=== PATIENT | male | born 1950 | race Caucasian/White ===

== ENCOUNTER 2018-06-23 13:43 | Emergency (ER) | payer MEDICARE, OTHER ==
[2018-06-23 13:57] VITALS: BP 134/78
--- NOTE | 2018-06-23 14:20 | ED Physician Documentation ---
History of Present Illness - Stated complaint Stated Complaint: LT THIGH INJ - Chief complaint Chief Complaint: Ext Problem - Additonal information Additional information: hx from pt 67 male on coumadin making the bed and hit thigh on bedpost has a bruise thigh very swollen and painful diff to walk meds are allopurinol, cochicine, amriodarone, coumadin. indapamide, lexapro, statin, wellbutrin, zertia, vitamins Review of Systems Musculoskeletal: reports: Extremity pain, Extremity swelling Endocrine: reports: Easy bruising / bleeding PD PAST MEDICAL HISTORY - Present Medications Home Medications: Ambulatory Orders Medication Instructions Recorded Confirmed HYDROcod/ACETAM 5/325 [[place] 5/325] 1 ea PO Q6H PRN #10 tablet 06/23/18 - Allergies Allergies/Adverse Reactions: Allergies Allergy/AdvReac Type Severity Reaction Status Date / Time Cpnwfvi-Ysz-Zlt Reductase AdvReac Unknown Verified 06/23/18 13:56 Inhibitor PD ED PE NORMAL - Vitals Vital signs reviewed: Yes - Cardiac Cardiac: RRR - Respiratory Respiratory: No respiratory distress, Clear bilaterally - Extremities Extremities: Other (L thigh anterior bruised and very swollen, firm to touch but not hard, pain with range of motion but not at rest, MSV intact) Results - Vitals Vitals: Vital Signs - 24 hr 06/23/18 13:54 Temperature 36.4 C L Heart Rate 85 Respiratory 16 Rate Blood Pressure 134/78 H O2 Saturation 96 Oxygen O2 Source Room air - Labs Labs: Laboratory Tests 06/23/18 06/23/18 14:26 14:26 WBC 11.4 H RBC 4.17 L Hgb 12.4 L Hct 35.7 L MCV 85.7 MCH 29.8 MCHC 34.7 RDW 14.7 Plt Count 289 MPV 7.2 L Neut # (Auto) 9.0 H Lymph # (Auto) 0.9 L [place] # (Auto) 1.4 H Eos # (Auto) 0.1 Baso # (Auto) 0.0 Absolute Nucleated RBC 0.00 Nucleated RBC % 0.0 PT 43.8 H INR 4.1 H - Rads (name of study) CT LE Radiology: See rad report (11 X 6 X 5 cm hematoma to central / lateral vasttus intermedius mm) PD MEDICAL DECISION MAKING - Sepsis Event Vital Signs: Vital Signs - 24 hr 06/23/18 13:54 Temperature 36.4 C L Heart Rate 85 Respiratory 16 Rate Blood Pressure 134/78 H O2 Saturation 96 Oxygen O2 Source Room air Departure - Departure Disposition: 01 Home, Self Care Clinical Impression: Hematoma of muscle Condition: Good Instructions: ED Hematoma Prescriptions: HYDROcod/ACETAM 5/325 [[place] 5/325] 1 ea PO Q6H PRN #10 tablet PRN Reason: Severe Pain Comments: Your blood count is fine - you have not lost too much blood into the muscle Your INR is high today 4.1 - please hold your coumadin today and ask your pill maker to recheck the level at your appointment tomorrow There is a hematoma deep in the quadricep muscle - is is about 5 X 6 X 11 cm - but it is not accessible to be drained. It should gradually reasborb on its own. The bone is fine - no fracture The hematoma and swelling have not caused compartment syndrome (when the muscle swells up so much is cannot fit in its sheath/covering and thus compromises its own blood supply) I think it is safe for you to go home I recommend you hold the coumadin today and get your INR and blood count rechecked tomorrow. Apply ice for 20 minutes at time every 1-3 hr today and tomorrow to decrease the swelling and hopefully slow some of the bleeding Wear the NATASHA wrap as well I have prescribed medication to ease the pain COnsider using a walker to help reduce the pain of weight bearing until this has healed If the pain becomes very severe and the leg feels hard to the touch like a piece of wood r stone or if your foot cemoes numb or pale, those could be signs of compartment syndrome developing and you should come back to the ER Discharge Date/Time: 06/23/18 16:30
[2018-06-23 14:30] LABS: BASOPHILS % (AUTO) 0.3 %; EOSINOPHILS # (AUTO) 0.1 10^3/uL (0.0-0.7); EOSINOPHILS % (AUTO) 0.8 %; HGB - HEMOGLOBIN 12.4 g/dL (14.0-18.0); LYMPHOCYTES # (AUTO) 0.9 10^3/uL (1.5-3.5); LYMPHOCYTES % (AUTO) 7.6 %; MEAN CORPUSCULAR HEMOGLOBIN 29.8 pg (27.0-31.0); MEAN CORPUSCULAR HGB CONC 34.7 g/dL (32.0-36.0); MEAN CORPUSCULAR VOLUME 85.7 fL (80.0-94.0); MEAN PLATELET VOLUME 7.2 fL (7.4-11.4); MONOCYTES # (AUTO) 1.4 10^3/uL (0.0-1.0); NEUTROPHILS % (AUTO) 79.3 %; PLT - PLATELET COUNT 289 10^3/uL (130-450); RED BLOOD COUNT 4.17 10^6/uL (4.70-6.10); RED CELL DISTRIBUTION WIDTH 14.7 % (12.0-15.0); WHITE BLOOD COUNT 11.4 x10^3/uL (4.8-10.8)
[2018-06-23 14:36] LABS: INR 4.1 (0.8-1.2); PT - PROTHROMBIN TIME 43.8 secs (9.9-12.6)
--- NOTE | 2018-06-23 15:27 | CT Report ---
Procedure Date: 06/23/2018 Accession Number: [id number] / [id number] Procedure: CT - Lower Extremity Left W/O CPT Code: FULL RESULT: EXAM: LEFT FEMUR CT WITHOUT CONTRAST EXAM DATE: 06/23/2018 03:06 PM. CLINICAL HISTORY: Left thigh contusion and swelling. Concern for hematoma. On Coumadin therapy. COMPARISON: None. TECHNIQUE: Thin-section axial images were acquired of the left femur from the greater trochanter to the distal femoral metadiaphysis without contrast. Post-processing: Coronal and sagittal reformats. Other: None. In accordance with CT protocol optimization, one or more of the following dose reduction techniques were utilized for this exam: automated exposure control, adjustment of mA and/or KV based on patient size, or use of iterative reconstructive technique. FINDINGS: Bones: No fracture or bone lesion. Joints: The hip and knee joints are not in the [id number]-or-ixws. Musculature: Evaluation of the musculature is technically limited due to lack of intravenous contrast. However, there is an approximately 11 cm superior inferior by 6 cm AP by 5 cm medial to lateral ill-defined area of heterogeneous slightly hyperdense and slightly hypodense tissue within the central to lateral aspects of the vastus intermedius muscle. Other: Mild subcutaneous edema at the anterolateral aspect of the distal thigh. IMPRESSION: 1. Technically limited exam due to lack of intravenous contrast. 2. An approximately 11 x 6 x 5 cm ill-defined area of heterogeneous slightly hyperdense and slightly hypodense tissue within the central to lateral aspects of the vastus intermedius muscle. Differential would include hematoma, abscess, myositis, neoplasm. If the patient's symptoms persists or worsen, then further evaluation with a follow-up MRI without and with intravenous contrast is suggested. RADIA
== END 2018-06-23 16:30 | disposition home or self-care (01) ==
LOC: ED 13:43
DX: S70.12XA Contusion of left thigh, initial encounter (principal); W22.03XA Walked into furniture, initial encounter; Y93.E9 Activity, other interior property and clothing maintenance; R79.1 Abnormal coagulation profile
CPT/HCPCS: 36415; 85025; 85610; 99283

== ENCOUNTER 2018-07-08 14:47 | Outpatient (CLI) | payer MEDICARE, OTHER ==
[2018-07-08 17:57] LABS: CALCIUM 8.8 mg/dL (8.5-10.3); CREATININE 0.9 mg/dL (0.6-1.2)
== END 2018-07-08 14:48 | disposition home or self-care (01) ==
LOC: LAB.F 14:47
PROVIDERS: ATTEND Internal Medicine Cardiovascular Disease
DX: Z51.81 Encounter for therapeutic drug level monitoring (principal)
CPT/HCPCS: 36415; 80048

== ENCOUNTER 2019-12-04 08:15 | Outpatient (CLI) | payer MEDICARE, OTHER ==
[2019-12-04 17:30] LABS: BILIRUBIN,URINE NEGATIVE (NEGATIVE); GLUCOSE, URINE (UA) NEGATIVE (NEGATIVE); KETONES,URINE (UA) NEGATIVE (NEGATIVE); LEUKOCYTE ESTERASE, URINE NEGATIVE (NEGATIVE); NITRITE,URINE NEGATIVE (NEGATIVE); OCCULT BLOOD,URINE NEGATIVE (NEGATIVE); PROTEIN,URINE NEGATIVE (NEGATIVE); UROBILINOGEN,URINE 0.2 (NORMAL) E.U./dL (NORMAL)
[2019-12-04 17:35] LABS: CLARITY,URINE CLEAR (CLEAR)
[2019-12-04 17:49] LABS: BACTERIA,URINE None Seen /HPF (None Seen); CRYSTALS,URINE 6-10 Calcium Oxalate /LPF; RBC,URINE 0-5 /HPF (0-5); SQUAMOUS EPITHELIAL CELL,UR NONE SEEN (<= Few)
== END 2019-12-04 23:59 | disposition home or self-care (01) ==
LOC: LAB.R 08:15
DX: R30.0 Dysuria (principal); R10.32 Left lower quadrant pain
CPT/HCPCS: 81001; 87086

== ENCOUNTER 2021-02-21 10:11 | Outpatient (CLI) | payer MEDICARE, OTHER ==
[2021-02-21 16:21] LABS: CALCIUM 9.4 mg/dL (8.5-10.3); CREATININE 1.1 mg/dL (0.6-1.2); POTASSIUM 3.5 mmol/L (3.5-5.0)
== END 2021-02-21 10:12 | disposition home or self-care (01) ==
LOC: LAB.S 10:11
PROVIDERS: ATTEND Internal Medicine Cardiovascular Disease
DX: I10 Essential (primary) hypertension (principal)
CPT/HCPCS: 36415; 80048

== ENCOUNTER 2021-04-25 13:13 | Outpatient (CLI) | payer MEDICARE, OTHER ==
[2021-04-25 20:09] LABS: CALCIUM 9.2 mg/dL (8.5-10.3); CREATININE 0.9 mg/dL (0.6-1.2); POTASSIUM 3.8 mmol/L (3.5-5.0)
== END 2021-04-25 13:14 | disposition home or self-care (01) ==
LOC: LAB.S 13:13
PROVIDERS: ATTEND Internal Medicine Cardiovascular Disease
DX: I10 Essential (primary) hypertension (principal)
CPT/HCPCS: 36415; 80048

== ENCOUNTER 2021-05-24 08:46 | Outpatient (CLI) | payer MEDICARE, OTHER ==
[2021-05-24 17:09] LABS: HCT - HEMATOCRIT 41.4 % (42.0-52.0); HGB - HEMOGLOBIN 13.4 g/dL (14.0-18.0); MEAN CORPUSCULAR HEMOGLOBIN 30.2 pg (27.0-31.0); MEAN CORPUSCULAR HGB CONC 32.4 g/dL (32.0-36.0); MEAN CORPUSCULAR VOLUME 93.5 fL (80.0-94.0); MEAN PLATELET VOLUME 10.6 fL (7.4-11.4); RED BLOOD COUNT 4.43 10^6/uL (4.70-6.10); RED CELL DISTRIBUTION WIDTH 14.6 % (12.0-15.0)
[2021-05-24 17:27] LABS: ALBUMIN 3.8 g/dL (3.2-5.5); ALBUMIN/GLOBULIN RATIO 1.5 (1.0-2.2); ALKALINE PHOSPHATASE 50 IU/L (42-121); ALT ALANINE AMINOTRANSFERASE 27 IU/L (10-60); AST ASPARTATE AMINOTRANSFERASE 23 IU/L (10-42); BILIRUBIN,TOTAL 0.6 mg/dL (0.2-1.0); BUN - BLOOD UREA NITROGEN 11 mg/dL (6-20); CALCIUM 8.9 mg/dL (8.5-10.3); CARBON DIOXIDE - CO2 28 mmol/L (21-32); CHLORIDE 105 mmol/L (101-111); CHOL/HDL RATIO 3.4 (<5.0); CHOLESTEROL 121 mg/dL; GFR - MDRD 74 (>89); GLUCOSE 106 mg/dL (70-100); HDL CHOLESTEROL 36 mg/dL; LDL CHOLESTEROL,CALCULATED 70 mg/dL; LDL/HDL RATIO 1.9 (<3.6); POTASSIUM 3.8 mmol/L (3.5-5.0); SODIUM 137 mmol/L (135-145); TOTAL PROTEIN 6.4 g/dL (6.7-8.2); TRIGLYCERIDES 73 mg/dL; URIC ACID 5.4 mg/dL (2.6-7.2); VLDL CHOLESTEROL 15 mg/dL
== END 2021-05-24 08:47 | disposition home or self-care (01) ==
LOC: LAB.S 08:46
PROVIDERS: ATTEND Family Medicine
DX: E78.00 Pure hypercholesterolemia, unspecified (principal); Z87.39 Personal history of other diseases of the musculoskeletal system and connective tissue
CPT/HCPCS: 36415; 80053; 80061; 83721; 84550; 85027

== ENCOUNTER 2021-06-13 22:13 | Outpatient (CLI) | payer MEDICARE, OTHER | END 2021-06-13 22:14 | disposition short-term general hospital (02) | LOC: EMS 22:13 | DX: R07.81 Pleurodynia (principal) | CPT/HCPCS: A0425; A0429 ==

== ENCOUNTER 2021-07-07 10:25 | Outpatient (CLI) | payer MEDICARE, OTHER | END 2021-07-07 10:26 | disposition short-term general hospital (02) | LOC: EMS 10:25 | DX: R06.02 Shortness of breath (principal) | CPT/HCPCS: A0425; A0427 ==

== ENCOUNTER 2021-08-19 07:21 | Outpatient (CLI) | payer MEDICARE, OTHER ==
[2021-08-19 07:58] LABS: HCT - HEMATOCRIT 40.2 % (42.0-52.0); HGB - HEMOGLOBIN 13.1 g/dL (14.0-18.0); MEAN CORPUSCULAR HEMOGLOBIN 29.6 pg (27.0-31.0); MEAN CORPUSCULAR HGB CONC 32.6 g/dL (32.0-36.0); MEAN CORPUSCULAR VOLUME 90.7 fL (80.0-94.0); MEAN PLATELET VOLUME 9.7 fL (7.4-11.4); RED BLOOD COUNT 4.43 10^6/uL (4.70-6.10); RED CELL DISTRIBUTION WIDTH 14.7 % (12.0-15.0); WHITE BLOOD COUNT 6.2 x10^3/uL (4.8-10.8)
[2021-08-19 08:17] LABS: ALBUMIN 3.8 g/dL (3.2-5.5); ALBUMIN/GLOBULIN RATIO 1.4 (1.0-2.2); ALKALINE PHOSPHATASE 57 IU/L (42-121); ALT ALANINE AMINOTRANSFERASE 27 IU/L (10-60); AST ASPARTATE AMINOTRANSFERASE 22 IU/L (10-42); BILIRUBIN,TOTAL 0.7 mg/dL (0.2-1.0); BUN - BLOOD UREA NITROGEN 13 mg/dL (6-20); CALCIUM 9.5 mg/dL (8.5-10.3); CARBON DIOXIDE - CO2 29 mmol/L (21-32); CHLORIDE 105 mmol/L (101-111); CHOL/HDL RATIO 3.7 (<5.0); CHOLESTEROL 139 mg/dL; GFR - MDRD 74 (>89); GLUCOSE 97 mg/dL (70-100); HDL CHOLESTEROL 38 mg/dL; LDL CHOLESTEROL,CALCULATED 82 mg/dL; LDL/HDL RATIO 2.2 (<3.6); SODIUM 143 mmol/L (135-145); TOTAL PROTEIN 6.6 g/dL (6.7-8.2); TRIGLYCERIDES 95 mg/dL; VLDL CHOLESTEROL 19 mg/dL
== END 2021-08-19 07:22 | disposition home or self-care (01) ==
LOC: LAB 07:21
PROVIDERS: ATTEND Internal Medicine Cardiovascular Disease
DX: E78.5 Hyperlipidemia, unspecified (principal); I48.91 Unspecified atrial fibrillation
CPT/HCPCS: 36415; 80053; 80061; 83721; 85027

== ENCOUNTER 2022-03-31 14:01 | Inpatient (IN) | payer MEDICARE, OTHER ==
[2022-03-31] MEDS ORDERED: ALBUTEROL 1 PUFF INH STA (14:36)
--- NOTE | 2022-03-31 14:40 | ED Physician Documentation ---
History of Present Illness - Stated complaint Stated Complaint: C+ FEVER/CHILLS - Chief complaint Chief Complaint: Resp - Additonal information Additional information: 71-year-old male presents emergency department for evaluation of dyspnea in the setting of COVID-19 infection. He began having generalized myalgias fevers cough and chills on 28 March. It was at that time that he tested positive for COVID. He comes to the ER today with worsening dyspnea. He is doubly vaccinated and boosted with Pfizer. His last vaccine he believes was in January. No nausea or vomiting. He is denying any chest pain. Past medical history is most significant for hypertension, hyperlipidemia and atrial fibrillation. Anticoagulated on Xarelto. He also has a history of BPH for which he takes Flomax. Multiple antidepressants. No history of tobacco use or pulmonary disorder. Review of Systems Constitutional: reports: Fever, Chills, Myalgias, Fatigue Eyes: reports: Reviewed and negative Ears: reports: Reviewed and negative Nose: reports: Congestion Throat: reports: Reviewed and negative Cardiac: reports: Reviewed and negative Respiratory: reports: Dyspnea, Cough GI: reports: Reviewed and negative : reports: Reviewed and negative Skin: reports: Reviewed and negative Musculoskeletal: reports: Reviewed and negative PD PAST MEDICAL HISTORY - Past Surgical History Past Surgical History: No - Present Medications Home Medications: Ambulatory Orders Medication Instructions Recorded Confirmed HYDROcod/ACETAM 5/325 [[place] 5/325] 1 ea PO Q6H PRN #10 tablet 06/23/18 - Allergies Allergies/Adverse Reactions: Allergies Allergy/AdvReac Type Severity Reaction Status Date / Time Hlalkwe-BJQ-BzH Reductase AdvReac Unknown Verified 06/23/18 13:56 Inhibitor [Cwwitvl-Zsp-Ttb Reductase Inhibitor] - Social History Does the pt smoke?: No Smoking Status: Never smoker Does the pt drink ETOH?: No Does the pt have substance abuse?: No - Immunizations Immunizations are current?: Yes - POLST Patient has POLST: No PD ED PE EXPANDED - General General: Alert, No acute distress, Other (Obese) - Neck Neck: Supple w/out meningeal sx. No: Adenopathy - Cardiac Cardiac: Irregularly irregular, Murmur Present, Radial strong equal, Pedal strong equal, Cap refill < 2 sec - Respiratory Respiratory: Clear to ausultation surekha. No: Distress, Labored (No tachypnea or rales.) - Abdomen Abdomen: Normal Bowel sounds. No: Tender to palpation - Back Back: Normal exam - Derm Derm: Normal color, Warm and dry - Extremities Extremities: Normal. No: Deformity - Neuro Neuro: Alert and Oriented X 3, CNII-XII intact - GCS Eye Opening: Spontaneous Motor: Obeys Commands Verbal: Oriented Total: 15 Results - Vitals Vitals: Vital Signs - 24 hr 03/31/22 03/31/22 03/31/22 14:19 15:30 16:21 Temperature 38.1 C H Heart Rate 94 78 Respiratory 19 20 Rate Blood Pressure 129/77 O2 Saturation 93 87 L 03/31/22 03/31/22 03/31/22 16:29 16:33 16:36 Temperature 39.6 C H Heart Rate 90 93 Respiratory 18 Rate Blood Pressure 128/66 O2 Saturation 87 L 94 Oxygen O2 Source Nasal cannula - Labs Labs: Laboratory Tests 03/31/22 03/31/22 14:48 14:48 WBC 7.8 RBC 4.63 L Hgb 14.5 Hct 42.2 MCV 91.1 MCH 31.3 H MCHC 34.4 RDW 14.2 Plt Count 157 MPV 10.1 Neut # (Auto) 6.2 Lymph # (Auto) 0.5 L [place] # (Auto) 1.1 H Eos # (Auto) 0.0 Baso # (Auto) 0.0 Absolute Nucleated RBC 0.00 Nucleated RBC % 0.0 Sodium 139 Potassium 3.7 Chloride 101 Carbon Dioxide 26 Anion Gap 12.0 BUN 13 Creatinine 1.0 Estimated GFR (MDRD) 74 L Glucose 106 H Calcium 9.2 Total Bilirubin 0.7 AST 43 H ALT 41 Alkaline Phosphatase 48 Total Protein 7.0 Albumin 4.1 Globulin 2.9 Albumin/Globulin Ratio 1.4 Lipase 33 - Rads (name of study) cxr Radiology: Final report received (Slight appearance of increased interstitial markings as above which could be related to edema or potentially pneumonia.) PD MEDICAL DECISION MAKING - ED course Complexity details: reviewed results, re-evaluated patient, considered differential, d/w patient, d/w family ED course: 71-year-old male who has a history of hypertension hyperlipidemia and atrial fibrillation for which he takes Coumadin presents emergency department with dyspnea. He tested positive for COVID-19 at home on the . Initially when he presented he did have some scattered rhonchi and room air saturations were about 93%. However during the duration of his ED stay his saturations have slowly declined now to 87%. Chest x-ray is perhaps suggestive of an early pneumonia but not overwhelming. In addition to this over the course of his ED stay he has been calm more progressively febrile with a T-max of 103.1. Blood cultures are pending. Given the new hypoxia in the setting of COVID-19 patient was presented for admission to Dr. Montez who graciously agrees to admit. I did discuss the plan with the patient as well as his . Departure - Departure Disposition: 66 [facility] DC/Xfer Clinical Impression: Hypoxia, COVID-19 virus infection Fever Qualifiers: Fever type: due to other condition Qualified Code(s): R50.81 - Fever presenting with conditions classified elsewhere
[2022-03-31 14:54] LABS: BASOPHILS % (AUTO) 0.3 %; EOSINOPHILS % (AUTO) 0.1 %; HCT - HEMATOCRIT 42.2 % (42.0-52.0); HGB - HEMOGLOBIN 14.5 g/dL (14.0-18.0); LYMPHOCYTES # (AUTO) 0.5 10^3/uL (1.5-3.5); LYMPHOCYTES % (AUTO) 6.1 %; MEAN CORPUSCULAR HEMOGLOBIN 31.3 pg (27.0-31.0); MEAN CORPUSCULAR HGB CONC 34.4 g/dL (32.0-36.0); MEAN CORPUSCULAR VOLUME 91.1 fL (80.0-94.0); MEAN PLATELET VOLUME 10.1 fL (7.4-11.4); MONOCYTES # (AUTO) 1.1 10^3/uL (0.0-1.0); MONOCYTES % (AUTO) 13.7 %; NEUTROPHILS # (AUTO) 6.2 10^3/uL (1.5-6.6); NEUTROPHILS % (AUTO) 79.4 %; PLT - PLATELET COUNT 157 10^3/uL (130-450); RED BLOOD COUNT 4.63 10^6/uL (4.70-6.10); RED CELL DISTRIBUTION WIDTH 14.2 % (12.0-15.0); WHITE BLOOD COUNT 7.8 x10^3/uL (4.8-10.8)
[2022-03-31 15:07] LABS: ALBUMIN 4.1 g/dL (3.2-5.5); ALBUMIN/GLOBULIN RATIO 1.4 (1.0-2.2); BILIRUBIN,TOTAL 0.7 mg/dL (0.2-1.0); CALCIUM 9.2 mg/dL (8.5-10.3); POTASSIUM 3.7 mmol/L (3.5-5.0)
--- NOTE | 2022-03-31 15:33 | XRAY Report ---
PROCEDURE: Chest 1 View X-Ray INDICATIONS: COUGH/COVID SX TECHNIQUE: One view of the chest was acquired. COMPARISON: None FINDINGS: Surgical changes and devices: None. Lungs and pleura: There is a slight appearance of increased interstitial markings most notably on the left. Mediastinum: Mediastinal contours appear normal. Heart size is mildly prominent. Bones and chest wall: No suspicious bony lesions. Overlying soft tissues appear unremarkable. IMPRESSION: Slight appearance of increased interstitial markings as above which could be related to edema or pote ntially pneumonia. Reviewed by: Jeny Hammer MD on 03/31/2022 3:32 PM PDT Approved by: Jeny Hammer MD on 03/31/2022 3:32 PM PDT Station ID: [id number]
[2022-03-31] MEDS ORDERED: ONDANSETRON 4 MG/2 ML VIAL IVP PRN (16:45)
[2022-03-31] MEDS ORDERED: ONDANSETRON ODT 4 MG TABLET TL PRN (16:45)
[2022-03-31] MEDS ORDERED: ACETAMINOPHEN 325 MG TABLET PO PRN (16:45)
[2022-03-31] MEDS ORDERED: SODIUM CHLORIDE FLUSH 0.9% 10 ML SYRINGE IVP PRN (16:45)
[2022-03-31] MEDS ORDERED: CHERRY SYRUP 10 ML UDC PO ONE (16:46)
[2022-03-31] MEDS ORDERED: cefTRIAXone 1 GM in SODIUM CHLORIDE 0.9% MINIBAG 100 ML IV STA (17:21)
[2022-03-31] MEDS ORDERED: AZITHROMYCIN INJ 500 MG in SODIUM CHLORIDE 0.9% 250 ML IV STA (17:21)
--- NOTE | 2022-03-31 17:23 | HISTORY & PHYSICAL EXAMINATION ---
Chief Complaint - Chief Complaint Chief Complaint: Shortness of breath History of Present Illness - Admitted From Admitted From:: Home - History Obtained From Records Reviewed: [facility] History obtained from: Patient, ER Provider, EMR - History of Present Illness HPI Comment/Other: This is a 71-year-old male with a past medical history significant for atrial fibrillation on coumadin, depression, PVD, history of pulmonary embolism, KENDRA on CPAP, BPH who presents today complaining of worsening shortness of breath. He states he began feeling ill on Sunday with a sore throat, nasal congestion, fever, chills and myalgias. He did a COVID test on Sunday which came back positive. Since then, he has had progressive shortness of breath and a pro ductive cough. He is vaccinated with [employer] and has received a booster dose. His biggest complaint at this time is the cough and chest congestion which makes him feel short of breath. He denies any chest pain, dysuria, urgency, hematuria. Reports no nausea, vomiting, abdominal pain. He does take Coumadin for history of pulmonary embolism. In the emergency department, he was noted to be hypoxic and required 3 L of oxygen via nasal cannula. Chest x-ray was consistent with pneumonia. Given t his, medicine was consulted for admission. We did discuss goals of care and he would like to be a full code. History - Past Medical History Cardiovascular: reports: Hypertension, Peripheral Vascular Disease, Pulmonary embolism, Atrial fibrillation Respiratory: reports: Sleep apnea, CPAP use : reports: Benign prostate hypertrophy Psych: reports: Depression MRSA Hx?: No - Past Surgical History Cardiovascular: reports: Other (Iliac stenting.) - Family & Social History Family History Comment/Other: He reports mother had a history of breast cancer and colon cancer that metastasized to the liver. Living arrangement: At home Living Situation: With spouse/s.o. Social History Notes: He lives at home with his . He is a non-smoker. He drinks about 3 alcoholic beverages a week. - POLST Patient has POLST: No Meds/Allgy - Home Medications Home Medications: Ambulatory Orders Medication Instructions Recorded Confirmed Bupropion HCl [Wellbutrin Xl] 300 mg PO DAILY 03/31/22 Colchicine [Colcrys] 1.2 mg PO ONCE PRN 03/31/22 Ezetimibe [Zetia] 10 mg PO QD 03/31/22 Metoprolol Succinate [Toprol Xl] 25 mg PO DAILY 03/31/22 Pitavastatin Calcium [Livalo] 4 mg PO DAILY 03/31/22 Potassium Chloride [K-Dur] 20 meq PO DAILY 03/31/22 Tamsulosin [Flomax] 0.4 mg PO DAILY 03/31/22 Warfarin [Coumadin] 5 mg PO DAILY 03/31/22 allopurinoL [Allopurinol] 300 mg PO DAILY 03/31/22 - Allergies Allergies/Adverse Reactions: Allergies Allergy/AdvReac Type Severity Reaction Status Date / Time Ljxglxr-BBN-NaS Reductase AdvReac Unknown Verified 06/23/18 13:56 Inhibitor [Wxqbxpb-Zrm-Vnj Reductase Inhibitor] Review of Systems - Constitutional Constitutional: reports: Fever, Malaise - Ears, Nose & Throat Ears, Nose & Throat: reports: Nasal discharge, Nasal congestion, Sore throat - Cardiovascular Cariovascular: reports: Exertional dyspnea, Decr. exercise tolerance. denies: Chest pain, Edema - Respiratory Respiratory: reports: Cough, Sputum production, SOB at rest, SOB with exertion - Gastrointestinal Gastrointestinal: denies: Abdominal pain, Nausea, Vomiting - Genitourinary Genitourinary: denies: Dysuria, Frequency, Urgency, Hematuria - Musculoskeletal Musculoskeletal: reports: Muscle aches - Integumentary Integumentary: denies: Rash - Neurological Neurological: denies: General weakness, Focal weakness - Hematologic/Lymphatic Hematologic/Lymphatic: reports: Blood clots. denies: Anemia, Bleeding tendencies - All Other Systems All Other Systems: reports: Reviewed and negative Prior Level of Functionality: He is independent with his ADLs. Exam - Vital Signs Reviewed Vital Signs: Yes Vital Signs: Vital Signs x48h Temp Pulse Resp BP Pulse Ox 03/31/22 16:51 88 L 03/31/22 16:36 39.6 C H 03/31/22 16:33 93 18 128/66 94 03/31/22 16:29 90 87 L 03/31/22 16:21 87 L 03/31/22 15:30 78 20 03/31/22 14:19 38.1 C H 94 19 129/77 93 - Physical Exam General Appearance: positive: No acute distress, Alert Eyes Bilateral: positive: Normal inspection ENT: positive: ENT inspection nml, Other (Nasal cannula in place.) Neck: positive: Nml inspection Respiratory: positive: No respiratory distress, Rhonchi. negative: Rales Cardiovascular: positive: Regular rate & rhythm, No murmur. negative: Tachycardia, Systolic murmur Abdomen: positive: Non-tender, No distention. negative: Tenderness Skin: positive: Warm, Dry Extremities: positive: No pedal edema Neurologic/Psychiatric: positive: Motor nml. negative: Disoriented to person, Disoriented to place, Disoriented to time Conclusion/Plan - Problem List (1) Acute respiratory failure with hypoxia Conclusion/Plan: This is secondary to pneumonia likely due to COVID-19 although we cannot rule out a bacterial component. He is hypoxic requiring 3 L of oxygen. Chest x-ray is consistent with pneumonia. We will admit him for Decadron and IV antibiotics. Continue supplemental oxygen for goal saturation greater than 92%. (2) Pneumonia due to COVID-19 virus Conclusion/Plan: This appears to be the cause of his hypoxia. X-ray is consistent with pneumonia. He is vaccinated and has received a booster dose. Although he has no white blood cell count, we will cover him with antibiotics for potential bacterial pneumonia. Start Decadron 6 mg daily. Contact precautions. (3) Atrial fibrillation Conclusion/Plan: He is rate controlled. We will continue metoprolol and coumadin. Check INR. (4) History of pulmonary embolism Conclusion/Plan: Continue Coumadin. (5) PVD (peripheral vascular disease) Conclusion/Plan: He has history of iliac stenting. Continue Coumadin and statin. (6) Depression Conclusion/Plan: Stable. We will continue home medications. (7) BPH (benign prostatic hyperplasia) Conclusion/Plan: Continue Flomax. - Lab Results Lab results reviewed: Yes Fish Bones: 03/31/22 14:48 03/31/22 14:48 - Diagnostic Imaging Results Diagnostic Imaging Results: positive: Final report reviewed Core Measures - Anticipated LOS I expect patient to be DC'd or transferred within 96 hours.: Yes - Issues Hospital Issues and Management Plan: 71-year-old male who is known to be COVID-positive presents with worsening dyspnea found to have pneumonia on imaging and is hypoxic. Will be admitted for IV antibiotics and Decadron. - DVT/VTE - Prophylaxis VTE/DVT Device ordered at admit?: No VTE/DVT Prophylaxis med ordered at admit?: No
[2022-03-31 18:05] LABS: CORONAVIRUS 229E-RESP PCR NOT DETECTED; CORONAVIRUS HKU1-RESP PCR NOT DETECTED; CORONAVIRUS NL63-RESP PCR NOT DETECTED; CORONAVIRUS OC43-RESP PCR NOT DETECTED
[2022-03-31 18:06] LABS: HUMAN METAPNEUMOVIRUS NOT DETECTED; INFLUENZA A- RESP PCR PANEL NOT DETECTED; RHINOVIRUS/ENTEROVIRUS NOT DETECTED; SARS-CoV-2 -RESP PCR PANEL DETECTED
[2022-03-31 18:07] LABS: B. PARAPERTUSSIS- RESP PCR PAN NOT DETECTED; B. PERTUSSIS- RESP PCR PANEL NOT DETECTED; C. PNEUMONIAE- RESP PCR PANEL NOT DETECTED; INFLUENZA B - RESP PCR PANEL NOT DETECTED; M. PNEUMONIAE- RESP PCR PANEL NOT DETECTED; PARAINFLUENZA VIRUS 1 NOT DETECTED; PARAINFLUENZA VIRUS 2 NOT DETECTED; PARAINFLUENZA VIRUS 3 NOT DETECTED; PARAINFLUENZA VIRUS 4 NOT DETECTED; RSV- RESP PCR PANEL NOT DETECTED
[2022-03-31] MEDS ORDERED: WARFARIN 2.5 MG TABLET PO STA (18:23)
[2022-03-31] MEDS ORDERED: PHENOL THROAT SPRAY 177 ML MM PRN (18:29)
[2022-03-31] MEDS ORDERED: SODIUM CHLORIDE 0.9% 500 ML IV ONE (18:32)
[2022-03-31] MEDS: DEXAMETHASONE 10 MG/ML VIAL PO SCH (18:32)
[2022-03-31] MEDS: SODIUM CHLORIDE FLUSH 0.9% 10 ML SYRINGE IVP SCH (18:35)
[2022-03-31 18:36] LABS: INR 2.7 (0.8-1.2); PT - PROTHROMBIN TIME 30.2 secs (9.9-12.6)
[2022-03-31] MEDS: BENZONATATE 100 MG CAPSULE PO PRN (18:57)
[2022-03-31] MEDS ORDERED: APIXABAN 5 MG TABLET PO SCH (21:00)
[2022-03-31] MEDS: guaiFENesin 600 MG TABLET PO SCH (21:32)
[2022-03-31] MEDS: TAMSULOSIN 0.4 MG CAPSULE PO SCH (21:32)
[2022-04-01] MEDS ORDERED: BENZOCAINE/MENTHOL LOZENGE MM PRN (00:36)
[2022-04-01] MEDS: SODIUM CHLORIDE FLUSH 0.9% 10 ML SYRINGE IVP SCH ×3 (00:40→16:20)
[2022-04-01 06:17] LABS: BASOPHILS % (AUTO) 0.1 %; HCT - HEMATOCRIT 43.2 % (42.0-52.0); HGB - HEMOGLOBIN 14.6 g/dL (14.0-18.0); LYMPHOCYTES # (AUTO) 0.6 10^3/uL (1.5-3.5); LYMPHOCYTES % (AUTO) 6.7 %; MEAN CORPUSCULAR HEMOGLOBIN 30.5 pg (27.0-31.0); MEAN CORPUSCULAR HGB CONC 33.8 g/dL (32.0-36.0); MEAN CORPUSCULAR VOLUME 90.4 fL (80.0-94.0); MEAN PLATELET VOLUME 10.4 fL (7.4-11.4); MONOCYTES % (AUTO) 11.4 %; NEUTROPHILS # (AUTO) 7.4 10^3/uL (1.5-6.6); NEUTROPHILS % (AUTO) 81.5 %; PLT - PLATELET COUNT 170 10^3/uL (130-450); RED BLOOD COUNT 4.78 10^6/uL (4.70-6.10); WHITE BLOOD COUNT 9.1 x10^3/uL (4.8-10.8)
[2022-04-01 06:24] LABS: PT - PROTHROMBIN TIME 33.5 secs (9.9-12.6)
[2022-04-01 06:26] LABS: CREATININE 0.9 mg/dL (0.6-1.2); POTASSIUM 3.7 mmol/L (3.5-5.0)
[2022-04-01] MEDS: DEXAMETHASONE 10 MG/ML VIAL PO SCH (08:38)
[2022-04-01] MEDS: AZITHROMYCIN INJ 500 MG in SODIUM CHLORIDE 0.9% 250 ML IV SCH (08:38)
[2022-04-01] MEDS: guaiFENesin 600 MG TABLET PO SCH ×2 (08:39→21:44)
[2022-04-01] MEDS ORDERED: METOPROLOL SUCCINATE 25 MG TABLET PO SCH ×2 (09:00→11:21)
[2022-04-01] MEDS: cefTRIAXone 1 GM in SODIUM CHLORIDE 0.9% MINIBAG 100 ML IV SCH (10:22)
[2022-04-01] MEDS ORDERED: REMDESIVIR 100MG VIAL 200 MG in SODIUM CHLORIDE 0.9% 250 ML IV ONE (11:00)
--- NOTE | 2022-04-01 11:38 | PHARMACY PROGRESS NOTE ---
- Best Possible Medication History Admit Date and Time: 03/31/22 7765 Processed by: Pharmacy Medication History completed: Yes Patient Interview: Completed Secondary Source(s): Written medication list, Pharmacy records, Insurance records As the person ultimately responsible for medication therapy, providers are able to order a medication from an existing home medication list in [facility] via the "Reconcile Routine" prior to Confirmation of that medication by is support analyst. Such practice is discouraged except when the physician, in their clinical judgment, deems that a medical need exists for a medication without regard to previous use.
--- NOTE | 2022-04-01 14:40 | PROVIDER PROGRESS NOTE ---
Assessment/Plan - Problem List (1) Acute respiratory failure with hypoxia Assessment/Plan: This is secondary to pneumonia likely due to COVID-19 although we cannot rule out a bacterial component. He is hypoxic requiring 3 L of oxygen. Chest x-ray is consistent with pneumonia. We are using Decadron and IV antibiotics. Will add Remedesivir, as he qualifies. Continue supplemental oxygen for goal saturation greater than 92%. (2) Pneumonia due to COVID-19 virus Conclusion/Plan: This appears to be the cause of his hypoxia. X-ray is consistent with pneumonia. He is vaccinated and has received a booster dose. Although he has no white blood cell count,he was started on empiric antibiotics for potential bacterial pneumonia. Contact precautions ordered. We are using Decadron. Will add Remedesivir, as he qualifies. (3) KENDRA on CPAP at home Conclusion/Plan: His device is here, he was sleeping with it on this morning when I saw him. Will order his home CPAP device to be used while he is here (4) Atrial fibrillation Conclusion/Plan: He is rate controlled. We will continue metoprolol and coumadin. Follow INR. (5) History of pulmonary embolism Conclusion/Plan: Continue Coumadin. (6) PVD (peripheral vascular disease) Conclusion/Plan: He has history of iliac stenting. Continue Coumadin and statin. (7) Depression Conclusion/Plan: Stable. We will continue home medications. (8) BPH (benign prostatic hyperplasia) Conclusion/Plan: Continue Flomax. - Current Meds Current Meds: Current Medications Generic Name Dose Route Start Last Admin Trade Name Freq PRN Reason Stop Dose Admin Acetaminophen 650 mg 03/31/22 16:45 03/31/22 17:44 Acetaminophen 325 Mg Tablet PO 650 mg Q4HR PRN Administration Pain 1 to 4, or Fever Benzonatate 100 mg 03/31/22 18:29 03/31/22 18:57 Benzonatate 100 Mg Capsule PO 100 mg TID PRN Administration Cough Dexamethasone 6 mg 03/31/22 16:46 04/01/22 08:38 Dexamethasone 10 Mg/Ml Vial PO 04/09/22 09:01 6 mg DAILY JUNI Administration Guaifenesin 600 mg 03/31/22 21:00 04/01/22 08:39 Guaifenesin 600 Mg Tablet PO 600 mg BID JUNI Administration Azithromycin 500 mg/ Sodium 250 mls @ 250 mls/hr 04/01/22 09:00 04/01/22 09:48 Chloride IV 04/02/22 09:59 Infused DAILY JUNI Infusion Ceftriaxone Sodium 1 gm/ 100 mls @ 200 mls/hr 04/01/22 09:00 04/01/22 10:53 Sodium Chloride IV 04/04/22 09:29 Infused DAILY JUNI Infusion Sodium Chloride 10 ml 03/31/22 17:00 04/01/22 08:38 Sodium Chloride Flush 0.9% 10 Ml Syringe IVP 10 ml 0100,0900,1700 JUNI Administration Tamsulosin HCl 0.4 mg 03/31/22 21:00 03/31/22 21:32 Tamsulosin 0.4 Mg Capsule PO 0.4 mg HS JUNI Administration Throat Lozenges 1 lozenge 04/01/22 00:36 04/01/22 00:40 Benzocaine/Menthol Lozenge MM 1 lozenge Q2HR PRN Administration Throat pain - Lab Result Fish Bone Diagrams: 04/01/22 05:53 04/01/22 05:47 - Additional Planning My Orders: My Active Orders 04/01/22 11:14 Telemetry- [RC] Q4HR 04/01/22 11:21 Metoprolol Succinate [Toprol Xl] 25 mg PO DAILY 04/02/22 09:00 Remdesivir 100Mg Vial [Veklury] 100 mg Sodium Chloride 0.9% 100Ml [Normal Saline 0.9% 100Ml] 100 ml IV DAILY Subjective - Subjective Patient Reports: Resting Comfortably (Exam done remotely) Objective Vital Signs: Vital Signs - 24 hr 03/31/22 03/31/22 03/31/22 15:30 16:21 16:29 Temperature Heart Rate 78 90 Heart Rate [ Brachial] Respiratory 20 Rate Blood Pressure Blood Pressure [Left Brachial artery] Blood Pressure [Right Brachial artery] O2 Saturation 87 L 87 L 03/31/22 03/31/22 03/31/22 16:33 16:36 16:51 Temperature 39.6 C H Heart Rate 93 Heart Rate [ Brachial] Respiratory 18 Rate Blood Pressure 128/66 Blood Pressure [Left Brachial artery] Blood Pressure [Right Brachial artery] O2 Saturation 94 88 L 03/31/22 03/31/22 03/31/22 17:42 18:21 21:30 Temperature 39.1 C H 37.4 C Heart Rate 98 Heart Rate [ 94 74 Brachial] Respiratory 16 21 19 Rate Blood Pressure 123/92 H Blood Pressure 127/75 128/78 [Left Brachial artery] Blood Pressure [Right Brachial artery] O2 Saturation 98 97 96 04/01/22 04/01/22 04/01/22 00:30 05:29 08:34 Temperature 36.3 C L 36.6 C 36.7 C Heart Rate Heart Rate [ 92 88 95 Brachial] Respiratory 20 18 22 Rate Blood Pressure Blood Pressure 112/71 97/68 [Left Brachial artery] Blood Pressure 105/59 L 93/59 L [Right Brachial artery] O2 Saturation 99 96 96 04/01/22 04/01/22 04/01/22 08:50 08:52 10:26 Temperature Heart Rate Heart Rate [ 74 84 Brachial] Respiratory Rate Blood Pressure Blood Pressure 101/60 [Left Brachial artery] Blood Pressure 96/67 86/65 L 82/58 L [Right Brachial artery] O2 Saturation 96 94 Oxygen O2 Source Room air I&O (Last 24 Hrs): Intake and Output Totals x24h 03/30/22 03/31/22 04/01/22 23:59 23:59 23:59 Intake Total 600 1120 Balance 600 1120 General: Alert, No acute distress HEENT: Mucous membr. moist/pink Neck: Supple Neuro: Alert, Non Focal Cardiovascular: Regular rate Respiratory: No respiratory distress (wearing suppl O2) Abdomen: No tenderness Extremities: No edema - Results Results: Laboratory Results WBC 9.1 x10^3/uL (4.8-10.8) 04/01/22 05:53 RBC 4.78 10^6/uL (4.70-6.10) 04/01/22 05:53 Hgb 14.6 g/dL (14.0-18.0) 04/01/22 05:53 Hct 43.2 % (42.0-52.0) 04/01/22 05:53 MCV 90.4 fL (80.0-94.0) 04/01/22 05:53 MCH 30.5 pg (27.0-31.0) 04/01/22 05:53 MCHC 33.8 g/dL (32.0-36.0) 04/01/22 05:53 RDW 14.0 % (12.0-15.0) 04/01/22 05:53 Plt Count 170 10^3/uL (130-450) 04/01/22 05:53 MPV 10.4 fL (7.4-11.4) 04/01/22 05:53 Neut # (Auto) 7.4 10^3/uL (1.5-6.6) H 04/01/22 05:53 Lymph # (Auto) 0.6 10^3/uL (1.5-3.5) L 04/01/22 05:53 [place] # (Auto) 1.0 10^3/uL (0.0-1.0) 04/01/22 05:53 Eos # (Auto) 0.0 10^3/uL (0.0-0.7) 04/01/22 05:53 Baso # (Auto) 0.0 10^3/uL (0.0-0.1) 04/01/22 05:53 Absolute Nucleated RBC 0.00 x10^3/uL 04/01/22 05:53 Nucleated RBC % 0.0 /100WBC 04/01/22 05:53 PT 33.5 secs (9.9-12.6) H 04/01/22 05:47 INR 3.0 (0.8-1.2) H 04/01/22 05:47 Sodium 138 mmol/L (135-145) 04/01/22 05:47 Potassium 3.7 mmol/L (3.5-5.0) 04/01/22 05:47 Chloride 103 mmol/L (101-111) 04/01/22 05:47 Carbon Dioxide 27 mmol/L (21-32) 04/01/22 05:47 Anion Gap 8.0 (6-13) 04/01/22 05:47 BUN 15 mg/dL (6-20) 04/01/22 05:47 Creatinine 0.9 mg/dL (0.6-1.2) 04/01/22 05:47 Estimated GFR (MDRD) 84 (>89) L 04/01/22 05:47 Glucose 147 mg/dL (70-100) H 04/01/22 05:47 Calcium 9.0 mg/dL (8.5-10.3) 04/01/22 05:47 Total Bilirubin 0.7 mg/dL (0.2-1.0) 03/31/22 14:48 AST 43 IU/L (10-42) H 03/31/22 14:48 ALT 41 IU/L (10-60) 03/31/22 14:48 Alkaline Phosphatase 48 IU/L (42-121) 03/31/22 14:48 Total Protein 7.0 g/dL (6.7-8.2) 03/31/22 14:48 Albumin 4.1 g/dL (3.2-5.5) 03/31/22 14:48 Globulin 2.9 g/dL (2.1-4.2) 03/31/22 14:48 Albumin/Globulin Ratio 1.4 (1.0-2.2) 03/31/22 14:48 Lipase 33 U/L (22-51) 03/31/22 14:48 Nasal Adenovirus (PCR) NOT DETECTED 03/31/22 16:47 Nasal B. parapertussis DNA (PCR) NOT DETECTED 03/31/22 16:47 Nasal Coronavir 229E PCR NOT DETECTED 03/31/22 16:47 Nasal Coronavir HKU1 PCR NOT DETECTED 03/31/22 16:47 Nasal Coronavir NL63 PCR NOT DETECTED 03/31/22 16:47 Nasal Coronavir OC43 PCR NOT DETECTED 03/31/22 16:47 Nasal Enterovir/Rhinovir PCR NOT DETECTED 03/31/22 16:47 Nasal Influenza B PCR NOT DETECTED 03/31/22 16:47 Nasal Influenza A PCR NOT DETECTED 03/31/22 16:47 Nasal Parainfluen 1 PCR NOT DETECTED 03/31/22 16:47 Nasal Parainfluen 2 PCR NOT DETECTED 03/31/22 16:47 Nasal Parainfluen 3 PCR NOT DETECTED 03/31/22 16:47 Nasal Parainfluen 4 PCR NOT DETECTED 03/31/22 16:47 Nasal RSV (PCR) NOT DETECTED 03/31/22 16:47 Nasal B.pertussis DNA PCR NOT DETECTED 03/31/22 16:47 Nasal C.pneumoniae (PCR) NOT DETECTED 03/31/22 16:47 Delio Human Metapneumo PCR NOT DETECTED 03/31/22 16:47 Nasal M.pneumoniae (PCR) NOT DETECTED 03/31/22 16:47 Nasal SARS-CoV-2 (PCR) DETECTED A 03/31/22 16:47
[2022-04-01] MEDS: TAMSULOSIN 0.4 MG CAPSULE PO SCH (21:44)
[2022-04-01] MEDS: BENZONATATE 100 MG CAPSULE PO PRN (21:51)
[2022-04-02] MEDS: SODIUM CHLORIDE FLUSH 0.9% 10 ML SYRINGE IVP SCH ×2 (00:30→10:59)
[2022-04-02 06:58] LABS: BASOPHILS % (AUTO) 0.1 %; HCT - HEMATOCRIT 43.5 % (42.0-52.0); HGB - HEMOGLOBIN 14.9 g/dL (14.0-18.0); LYMPHOCYTES # (AUTO) 1.3 10^3/uL (1.5-3.5); LYMPHOCYTES % (AUTO) 11.8 %; MEAN CORPUSCULAR HGB CONC 34.3 g/dL (32.0-36.0); MEAN CORPUSCULAR VOLUME 90.4 fL (80.0-94.0); MEAN PLATELET VOLUME 10.4 fL (7.4-11.4); MONOCYTES # (AUTO) 1.5 10^3/uL (0.0-1.0); MONOCYTES % (AUTO) 13.2 %; NEUTROPHILS # (AUTO) 8.2 10^3/uL (1.5-6.6); NEUTROPHILS % (AUTO) 74.4 %; PLT - PLATELET COUNT 209 10^3/uL (130-450); RED BLOOD COUNT 4.81 10^6/uL (4.70-6.10); WHITE BLOOD COUNT 11.1 x10^3/uL (4.8-10.8)
[2022-04-02 07:02] LABS: INR 2.5 (0.8-1.2); PT - PROTHROMBIN TIME 27.3 secs (9.9-12.6)
[2022-04-02 07:05] LABS: CALCIUM 9.1 mg/dL (8.5-10.3); POTASSIUM 3.7 mmol/L (3.5-5.0)
[2022-04-02] MEDS ORDERED: dexAMETHasone 4 MG TABLET PO SCH (09:00)
[2022-04-02] MEDS ORDERED: REMDESIVIR 100MG VIAL 100 MG in SODIUM CHLORIDE 0.9% 100ML 100 ML IV SCH (09:00)
[2022-04-02] MEDS: AZITHROMYCIN INJ 500 MG in SODIUM CHLORIDE 0.9% 250 ML IV SCH (09:05)
[2022-04-02] MEDS: guaiFENesin 600 MG TABLET PO SCH (09:05)
[2022-04-02] MEDS: cefTRIAXone 1 GM in SODIUM CHLORIDE 0.9% MINIBAG 100 ML IV SCH (10:59)
--- NOTE | 2022-04-02 12:30 | Discharge Plan ---
Discharge Plan Problem Reviewed?: Yes Disposition: Home, Self Care Condition: Fair Diet: Regular Activity Restrictions: Activity as Tolerated Shower Restrictions: No Driving Restrictions: No Instruction Topics: COVID-19 [facility] Health Concerns: You were hospitalized for having low oxygen levels and being symptomatic with a COVID pneumonia infection. You received 2 doses of iv Remdesivir (standard dosing is between 1 to 5 days, given until symptoms improve, like no further oxygen therapy is needed). You are being discharged home today because of stable oxygen levels tested at rest and with activity. You may resume all your pre-Hospital medications and management. Based on Centers for Disease Control guidelines for isolation, you should be isolated from other members in your household for 10 days minimum, but up to 20 days. For you, the 10-day tenzin would be April 07. You may need longer isolation, up to 20 days total, which would be until April 17. The decision of when to stop isolation, between the 10-day and 20-day period of time, can be more fine- tuned by doing home COVID testing. Instructions for all this isolation are being provided to you, to help you follow recommendations. Plan of Treatment: As above. Care Goals: Improvement in symptoms and stabilization are the goals. Assessment: The patient was given instructions regarding the plan, as reminders. Additional Instructions or Follow Up instructions: If you have new or worsening symptoms, call your PCP for advice or come to the ER. No Smoking: If you smoke, Please STOP! Call for help. Follow-up with: Thang Jackson MD [Primary Care Provider] -
--- NOTE | 2022-04-02 12:59 | DISCHARGE SUMMARY ---
Discharge Summary Admit Date: 03/31/22 Discharge Date: 04/02/22 Discharging Provider: Dr Emily French Primary Care Provider: Dr Thang Jackson Condition at Discharge: Fair Discharge Disposition: 01 Home, Self Care - HPI History of Present Illness: From the admission H&P of Dr. Gallo Montez: This is a 71-year-old male with a past medical history significant for atrial fibrillation on coumadin, depression, PVD, history of pulmonary embolism, KENDRA on CPAP, BPH who presents today complaining of worsening shortness of breath. He states he began feeling ill on Sunday with a sore throat, nasal congestion, fever, chills and myalgias. He did a COVID test on Sunday which came back positive. Since then, he has had progressive shortness of breath and a productive cough. He is vaccinated with Pfizer and has received a booster dose. His biggest complaint at this time is the cough and chest congestion which makes him feel short of breath. He denies any chest pain, dysuria, urgency, hematuria. Reports no nausea, vomiting, abdominal pain. He does take Coumadin for history of pulmonary embolism. In the emergency department, he was noted to be hypoxic and required 3 L of oxy gen via nasal cannula. Chest x-ray was consistent with pneumonia. Given this, medicine was consulted for admission. We did discuss goals of care and he would like to be a full code. - HOSPITAL COURSE Hospital Course: (1) Acute respiratory failure with hypoxia This was secondary to pneumonia likely from COVID-19. He was hypoxic requiring up to 3 L/min of supplemental oxygen. As the COVID-pneumonia was treated, his O2 was weaned down to room air. On the day of discharge he underwent an exercise oximetry study and his O2 saturation was 93% on room air at rest, dropped slightly to 91% saturation on room air with activity. He did not need a new home oxygen order at the time of discharge (2) Pneumonia due to COVID-19 virus This appeared to be the cause of his hypoxia. (He had been vaccinated and had received a booster dose). Contact precautions were ordered and he received Decadron and got 2 days of Remedesivir, as he qualified. Although he had no elevated white blood cell count, he received several days of empiric antibiotics for potential bacterial pneumonia. At the time of discharge, he and his (by phone) were advised about isolation for 10-20 days, commencing from 03/28/22, when his symptoms began. (3) KENDRA on CPAP at home His device was used while here. (4) Atrial fibrillation He was rate controlled on his metoprolol and coumadin was continued. INR ran about 2.5. (5) History of pulmonary embolism We continued Coumadin. (6) PVD (peripheral vascular disease) He has history of iliac stenting. We continued the Coumadin and statin. (7) Depression Stable. We continued his home medication. (8) BPH (benign prostatic hyperplasia) We continued his Flomax. - ALLERGIES Allergies/Adverse Reactions: Allergies Allergy/AdvReac Type Severity Reaction Status Date / Time [id number] Reductase AdvReac Unknown Verified 06/23/18 13:56 Inhibitor [Cfyhaei-Uqq-Rrh Reductase Inhibitor] - MEDICATIONS Home Medications: Ambulatory Orders Medication Instructions Recorded Confirmed Bupropion HCl [Wellbutrin Xl] 300 mg PO DAILY 03/31/22 04/01/22 Colchicine [Colcrys] 1.2 mg PO ONCE PRN 03/31/22 04/01/22 Ezetimibe [Zetia] 10 mg PO QD 03/31/22 04/01/22 Metoprolol Succinate [Toprol Xl] 25 mg PO DAILY 03/31/22 04/01/22 Pitavastatin Calcium [Livalo] 4 mg PO DAILY 03/31/22 04/01/22 Potassium Chloride [K-Dur] 20 meq PO DAILY 03/31/22 04/01/22 Tamsulosin [Flomax] 0.4 mg PO DAILY 03/31/22 04/01/22 Warfarin [Coumadin] 5 mg PO SUMOWETHSA 03/31/22 04/01/22 allopurinoL [Allopurinol] 300 mg PO DAILY 03/31/22 04/01/22 Calcium Carbonate [Tums (Calcium 500 mg PO BID 04/01/22 04/01/22 Carbonate 500mg)] Cetirizine [ZyrTEC] 10 mg PO DAILY 04/01/22 04/01/22 Glucosamine HCl/Chondroitin Low 1 each PO BID 04/01/22 04/01/22 [Glucosamine-Chondroitin Cap] Indapamide [Lozol] 1.25 mg PO MOWEFR 04/01/22 04/01/22 Multivitamin [Theragran] 1 each PO DAILY 04/01/22 04/01/22 Warfarin [Coumadin] 2.5 mg PO TUFR 04/01/22 04/01/22 - PHYSICAL EXAM AT DISCHARGE General Appearance: positive: No acute distress, Alert Eyes Bilateral: positive: Normal inspection, PERRL ENT: positive: ENT inspection nml, No signs of dehydration Neck: positive: Other (Very large and long wang and neck not evaluated) Respiratory: positive: No respiratory distress Cardiovascular: positive: Regular rate & rhythm Abdomen: positive: Non-tender, No distention Skin: positive: Warm, Dry Extremities: positive: Non-tender, No pedal edema Neurologic/Psychiatric: positive: Oriented x3 (Non-focal) - LABS Result Diagrams: 04/02/22 06:28 04/02/22 06:28 - DIAGNOSTIC IMAGING Diagnostic Imaging Results: Final report reviewed - FOLLOW UP Follow Up: See PCP in routine hosputal follow-up. - TIME SPENT Time Spent in Discharge (Minutes): 30
[2022-04-02 14:53] VITALS: BP 135/76
== END 2022-04-02 14:56 | disposition home or self-care (01) | DRG 177 ==
LOC: ED 14:01 → MS2 16:45
PROVIDERS: ADMIT Internal Medicine; ATTEND Internal Medicine
PROC: 3E0333Z Introduction of Anti-inflammatory into Peripheral Vein, Percutaneous Approach (ICD-10-PCS; 2022-03-31)
PROC: XW033E5 Introduction of Remdesivir Anti-infective into Peripheral Vein, Percutaneous Approach, New Technology Group 5 (ICD-10-PCS; principal; 2022-04-01)
DX: U07.1 COVID-19 (principal); R09.02 Hypoxemia; R50.81 Fever presenting with conditions classified elsewhere; I10 Essential (primary) hypertension; E78.5 Hyperlipidemia, unspecified; J96.01 Acute respiratory failure with hypoxia; J12.82 Pneumonia due to coronavirus disease 2019; G47.33 Obstructive sleep apnea (adult) (pediatric); Z79.899 Other long term (current) drug therapy; I48.91 Unspecified atrial fibrillation; I73.9 Peripheral vascular disease, unspecified; F32.A Depression, unspecified; N40.0 Benign prostatic hyperplasia without lower urinary tract symptoms; Z86.711 Personal history of pulmonary embolism; Z79.01 Long term (current) use of anticoagulants; Z95.820 Peripheral vascular angioplasty status with implants and grafts
CPT/HCPCS: 36415; 71045; 80048; 80053; 83690; 85025; 85610; 87040; 87633; 94640; 94664; 94761; 99284; 99285; A9270; J8540

== ENCOUNTER 2022-05-03 07:16 | Outpatient (CLI) | payer MEDICARE, OTHER ==
[2022-05-03 14:41] LABS: GLUCOSE,FASTING 95 mg/dL (70-100)
[2022-05-03 14:42] LABS: CRP - C-REACTIVE PROTEIN < 1.0 mg/dL (0-1.0)
[2022-05-03 14:51] LABS: CREATININE,URINE 124.4 mg/dL; MICROALBUM/CREATININE RATIO,UR 1.6 ug/mg (<30.0); MICROALBUMIN,URINE 0.2 mg/dL (0-300.0)
[2022-05-03 20:38] LABS: ESTIMATED AVERAGE GLUCOSE 114 mg/dL (70-100); HEMOGLOBIN A1c% 5.6 % (4.27-6.07)
[2022-05-05 14:08] LABS: LDL-P 921 nmol/L (<1000); LP-INSULIN RESISTANCE SCORE 74 (<=45); SMALL LDL-P 576 nmol/L (<=527)
== END 2022-05-03 07:17 | disposition home or self-care (01) ==
LOC: LAB.S 07:16
DX: E78.00 Pure hypercholesterolemia, unspecified (principal); E88.81 Metabolic syndrome and other insulin resistance
CPT/HCPCS: 36415; 82043; 82570; 82947; 83036; 83704; 86140

== ENCOUNTER 2023-04-04 08:00 | Outpatient (CLI) | payer MEDICARE, OTHER ==
--- NOTE | 2023-04-04 14:28 | XRAY Report ---
PROCEDURE: Chest 2 View X-Ray INDICATIONS: LEFT SIDED RIB PAIN TECHNIQUE: 2 views of the chest were acquired. COMPARISON: Chest x-ray 03/31/2022 FINDINGS: Surgical changes and devices: None. Lungs and pleura: No pleural effusions or pneumothorax. There is a noted interstitial markings are l ess prominent. Mediastinum: Mediastinal contours appear normal. Heart size is enlarged. Bones and chest wall: No suspicious bony lesions. Overlying soft tissues appear unremarkable. IMPRESSION: No acute cardiopulmonary process. Reviewed by: Jeny Hammer MD on 04/04/2023 2:27 PM PDT Approved by: Jeny Hammer MD on 04/04/2023 2:27 PM PDT Station ID: [id number]
== END 2023-04-04 23:59 | disposition home or self-care (01) ==
LOC: DI.S 08:00
PROVIDERS: ATTEND Physician Assistant
DX: R07.81 Pleurodynia (principal)

== ENCOUNTER 2023-08-26 20:16 | Outpatient (CLI) | payer MEDICARE, OTHER | END 2023-08-26 23:59 | disposition short-term general hospital (02) | LOC: EMS 20:16 | DX: R07.9 Chest pain, unspecified (principal); R20.0 Anesthesia of skin; R06.02 Shortness of breath | CPT/HCPCS: A0425; A0427 ==

== ENCOUNTER 2024-06-24 16:56 | Emergency (ER) | payer MEDICARE, OTHER ==
[2024-06-24 17:26] VITALS: BP 119/75; O2SAT 96
--- NOTE | 2024-06-24 17:35 | ED Physician Documentation ---
PD HPI HEAD INJURY - Stated complaint Stated Complaint: FALL - Chief complaint Chief Complaint: Trauma Hd/Nk - Additional information Additional information: Very nice 73-year-old gentleman who is on Eliquis for A-fib PEs and vascular stents presenting after fall. Patient was playing pickle ball when he lost his balance and hit his head. He sat out for about 40 minutes cleaned up the balls around the pickleball court and actually went on to play a couple more games. He has no headache no numbness or tingling no gait disturbance actually felt well enough to play and when in fact some pickleball matches afterwards. Review of Systems Neurologic: denies: Confused, Headache, LOC PD PAST MEDICAL HISTORY - Past Medical History Past Medical History: Yes Cardiovascular: Hypertension, Peripheral Vascular Disease, Pulmonary embolism, Atrial fibrillation Respiratory: Sleep apnea, CPAP use : Benign prostate hypertrophy Psych: Depression - Past Surgical History Past Surgical History: Yes Cardiovascular: Other - Present Medications Home Medications: Ambulatory Orders Medication Instructions Recorded Confirmed Colchicine [Colcrys] 1.2 mg PO ONCE PRN 03/31/22 04/01/22 Ezetimibe [Zetia] 10 mg PO QD 03/31/22 04/01/22 Metoprolol Succinate [Toprol Xl] 25 mg PO DAILY 03/31/22 04/01/22 Pitavastatin Calcium [Livalo] 4 mg PO DAILY 03/31/22 04/01/22 Potassium Chloride [K-Dur] 20 meq PO DAILY 03/31/22 04/01/22 Tamsulosin [Flomax] 0.4 mg PO DAILY 03/31/22 04/01/22 Warfarin [Coumadin] 5 mg PO SUMOWETHSA 03/31/22 04/01/22 allopurinoL [Allopurinol] 300 mg PO DAILY 03/31/22 04/01/22 buPROPion HCL [Wellbutrin Xl] 300 mg PO DAILY 03/31/22 04/01/22 Calcium Carbonate [Tums (Calcium 500 mg PO BID 04/01/22 04/01/22 Carbonate 500mg)] Cetirizine [ZyrTEC] 10 mg PO DAILY 04/01/22 04/01/22 Glucosamine HCl/Chondroitin Low 1 each PO BID 04/01/22 04/01/22 [Glucosamine-Chondroitin Cap] Indapamide [Lozol] 1.25 mg PO MOWEFR 04/01/22 04/01/22 Multivitamin [Theragran] 1 each PO DAILY 04/01/22 04/01/22 Warfarin [Coumadin] 2.5 mg PO TUFR 04/01/22 04/01/22 - Allergies Allergies/Adverse Reactions: Allergies Allergy/AdvReac Type Severity Reaction Status Date / Time [id number]-[id number]-KaN Reductase AdvReac Unknown Verified 06/24/24 17:15 Inhibitor [Kzjietc-Xpl-Vht Reductase Inhibitor] - Social History Does the pt smoke?: No Smoking Status: Never smoker Does the pt drink ETOH?: No Does the pt have substance abuse?: No - Immunizations Immunizations are current?: Yes - POLST Patient has POLST: No PD ED PE NORMAL - Vitals Vital signs reviewed: Yes - General General: Alert and oriented X 3 - HEENT HEENT: Atraumatic - Neck Neck: Supple, no meningeal sign, No bony TTP - Cardiac Cardiac: RRR, No murmur - Respiratory Respiratory: No respiratory distress - Abdomen Abdomen: Normal bowel sounds - Neuro Neuro: Alert and oriented X 3, 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 He is neurologically intact. CT scanning of his C-spine and brain are normal. He will be given warning instructions and discharged home in stable condition. Departure - Departure Disposition: 01 Home, Self Care Clinical Impression: Anticoagulated Scalp contusion Qualifiers: Encounter type: initial encounter Qualified Code(s): S00.03XA - Contusion of scalp, initial encounter Condition: Good Instructions: ED Head Injury Closed Comments: Great news Kamlesh, your CT scans were negative for any traumatic injury. I am glad that we did them as you are on Eliquis and this places you at high risk. There is no need to hold your Eliquis however should you have markedly worsening headache or any other neurologic changes please come back and see us in the emergency department. Forms: PCP List
--- NOTE | 2024-06-24 17:43 | CT Report ---
PROCEDURE: Head WO INDICATIONS: fell, hit head on eliquis TECHNIQUE: Noncontrast 4.5 mm thick angled axial sections acquired from the foramen magnum to the vertex. For r adiation dose reduction, the following was used: automated exposure control, adjustment of mA and/or kV according to patient size. COMPARISON: None. FINDINGS: Image quality: Diagnostic. CSF spaces: Basal cisterns are patent. No extra-axial fluid collections. Ventricles are normal in size and shape. Brain: No midline shift. No intracranial masses or hemorrhage. No mass effect. Carty-white matter i nterface is normal. There cerebral volume loss for age with resultant ventricular and sulcal prominen ce. There are periventricular and deep white matter chronic small vessel ischemic changes. Atheroscle rotic calcifications are noted in the intracranial segments of the bilateral internal carotid arterie s. Skull and face: Calvarium and visualized facial bones are intact, without suspicious lesions. Medic al device projects within the left posterior calvarium. Sinuses: Visualized sinuses and mastoids are clear. IMPRESSION: No acute intracranial pathology. No acute calvarial fracture. Reviewed by: Anthony Rainey MD on 06/24/2024 5:42 PM PDT Approved by: Anthony Rainey MD on 06/24/2024 5:42 PM PDT Station ID: [id number]
--- NOTE | 2024-06-24 17:46 | CT Report ---
PROCEDURE: Cervical Spine WO INDICATIONS: fallm, hit head, on eliquis TECHNIQUE: Noncontrast 3 mm thick sections acquired from the skull base to the T4 level. Sagittal and coronal r eformats were then constructed. For radiation dose reduction, the following was used: automated exp osure control, adjustment of mA and/or kV according to patient size. COMPARISON: None. FINDINGS: Image quality: Diagnostic. Bones: No acute fractures or dislocations. No acute compression fractures of the vertebral bodies. C raniocervical junction is intact. C1-C2 relationship is preserved. Visualized superior ribs are intac t. Straightening of cervical lordosis likely related to positioning and/or concurrent muscle spasms. Moderate multilevel cervical spondylosis. Soft tissues: Prevertebral soft tissues are normal in thickness. No paravertebral hematomas. No ap ical pneumothoraces. IMPRESSION: No acute, displaced fracture or traumatic subluxation. Multilevel cervical spondylosis. Reviewed by: Anthony Rainey MD on 06/24/2024 5:44 PM PDT Approved by: Anthony Rainey MD on 06/24/2024 5:44 PM PDT Station ID: [id number]
== END 2024-06-24 18:18 | disposition home or self-care (01) ==
LOC: ED 16:56
DX: S00.03XA Contusion of scalp, initial encounter (principal); W18.30XA Fall on same level, unspecified, initial encounter; Y93.69 Activity, other involving other sports and athletics played as a team or group; I10 Essential (primary) hypertension; I48.91 Unspecified atrial fibrillation; Z79.01 Long term (current) use of anticoagulants; Z79.899 Other long term (current) drug therapy
CPT/HCPCS: 36415; 99283; 99284